=== PATIENT | female | born 2000 | race Two or more races ===

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

== ENCOUNTER 2024-03-06 19:50 | Inpatient (IN) | payer OTHER ==
[2024-03-06] MEDS: ELECTROLYTE-148 SOLN 1,000 ML IV SCH (20:40)
[2024-03-06] MEDS ORDERED: BUTORPHANOL TARTRATE 2 MG/ML VIAL IVPB PRN (21:00)
[2024-03-06 21:02] VITALS: BMI 31.1
[2024-03-06] MEDS ORDERED: PROMETHAZINE HCL 25 MG/1 ML VIAL ONE (21:21)
[2024-03-06] MEDS ORDERED: BUTORPHANOL TARTRATE 2 MG/ML VIAL ONE (21:21)
[2024-03-06] MEDS: BUTORPHANOL TARTRATE 2 MG/ML VIAL IVPB ONE (21:32)
[2024-03-06] MEDS: PROMETHAZINE HCL 25 MG/1 ML VIAL IVPB ONE (21:32)
[2024-03-06 21:50] LABS: BASO % 0.1 % (0-2.0); EOS % 0.2 % (0-4.5); HEMATOCRIT 40.1 % (32.4-45.2); HEMOGLOBIN 13.7 GM/dL (10.7-15.3); LYMPH % 14.2 % (8-40); MCH 31.8 pg (25.7-33.7); MCHC 34.1 g/dl (32.0-36.0); MEAN CELL VOLUME 93.2 fl (80-96); MEAN PLT VOLUME 8.7 fl (7.5-11.1); MONO % 7.3 % (3.8-10.2); NEUT % 78.2 % (42.8-82.8); PLATELET COUNT 209 10^3/uL (134-434); RDW 13.3 % (11.6-15.6); WHITE BLOOD COUNT 14.6 K/mm3 (4.0-10.0)
[2024-03-06 21:58] LABS: INR 0.92 (0.83-1.09); PROTHROMBIN TIME (PATIENT) 10.6 SEC (9.7-13.0)
[2024-03-06 22:01] LABS: ACTIVATED PTT 28.1 SECONDS (25.2-36.5); POTASSIUM 3.7 mmol/L (3.5-5.1)
[2024-03-06 22:02] LABS: CALCIUM 8.7 mg/dL (8.5-10.1)
[2024-03-06 22:03] LABS: BLOOD UREA NITROGEN 13.7 mg/dL (7-18)
[2024-03-06 22:06] LABS: CREATININE 0.6 mg/dL (0.55-1.3)
[2024-03-06] MEDS ORDERED: OXYTOCIN 20 UNITS in 0.9% NS 20 UNIT/1,000 ML INFUS.BAG IV ONE (23:34)
[2024-03-06] MEDS ORDERED: LIDOCAINE HCL 1% PRESERVATIVE FREE - 30ML VIAL ONE (23:34)
[2024-03-07] MEDS: OXYTOCIN 20 UNITS in 0.9% NS 20 UNIT/1,000 ML INFUS.BAG IV SCH (00:03)
[2024-03-07] MEDS ORDERED: BENZOCAINE 28 GM HEMORRHOIDAL OINTMENT TP PRN (00:14)
[2024-03-07] MEDS ORDERED: oxyCODONE HCL 5 MG TABLET PO PRN (00:14)
[2024-03-07] MEDS ORDERED: ACETAMINOPHEN 325 MG TABLET (FP) PO PRN (00:14)
[2024-03-07] MEDS ORDERED: BISACODYL 10 MG SUPP.RECT RC PRN (00:14)
[2024-03-07] MEDS ORDERED: WITCH HAZEL 50% (TUCKS) 40 PAD/JAR PAD TP PRN (00:14)
[2024-03-07] MEDS ORDERED: BENZOCAINE 20% 57 GM BOTTLE TP PRN (00:14)
[2024-03-07] MEDS ORDERED: IBUPROFEN 600 MG TABLET (FP) PO PRN (00:14)
[2024-03-07] MEDS ORDERED: METHYLERGONOVINE MALEATE 0.2 MG/1 ML AMP IM PRN (00:14)
[2024-03-07 00:31] LABS: CORD HCO3 26.5 mmHg (20-29); CORD PCO2 61.2 mmHg (30-78); CORD pH 7.255 (7.14-7.44)
[2024-03-07 00:39] LABS: CORD BASE EXCESS -3.1 mmol/L (0-2); CORD HCO3 22.5 mmHg (20-29); CORD PCO2 42.3 mmHg (30-78); CORD pH 7.344 (7.14-7.44)
[2024-03-07] MEDS: ELECTROLYTE-148 SOLN 1,000 ML IV SCH (03:28)
[2024-03-07] MEDS: PROMETHAZINE HCL 25 MG/1 ML VIAL IVPB ONE (03:28)
[2024-03-08 07:03] LABS: BASO % 0.5 % (0-2.0); EOS % 0.6 % (0-4.5); HEMATOCRIT 37.6 % (32.4-45.2); LYMPH % 22.1 % (8-40); MCH 32.7 pg (25.7-33.7); MCHC 34.7 g/dl (32.0-36.0); MEAN CELL VOLUME 94.2 fl (80-96); MEAN PLT VOLUME 8.7 fl (7.5-11.1); MONO % 7.8 % (3.8-10.2); PLATELET COUNT 188 10^3/uL (134-434); RBC 3.99 M/mm3 (3.60-5.2); RDW 13.4 % (11.6-15.6); WHITE BLOOD COUNT 13.2 K/mm3 (4.0-10.0)
[2024-03-08] MEDS ORDERED: diphenhydrAMINE HCL 25 MG CAPSULE (FP) PO ONE (19:24)
[2024-03-08] MEDS: diphenhydrAMINE HCL 50 MG CAPSULE PO PRN (19:26)
[2024-03-08] MEDS ORDERED: SENNOSIDES/DOCUSATE COMBO (SENNA PLUS) TABLET (UD) PO PRN (22:00)
[2024-03-09 12:24] VITALS: BP 119/82; PULSE 87; RESP 16; TEMP 98.1
== END 2024-03-09 12:55 | disposition home or self-care (01) | DRG 560 ==
LOC: JLDR 19:50 → J3W 03-07 02:47
PROVIDERS: ADMIT Obstetrics & Gynecology; ATTEND Obstetrics & Gynecology
PROC: 10E0XZZ Delivery of Products of Conception, External Approach (ICD-10-PCS; principal; 2024-03-07)
DX: O48.0 Post-term pregnancy (principal); Z3A.40 40 weeks gestation of pregnancy; O69.81X0 Labor and delivery complicated by cord around neck, without compression, not applicable or unspecified; Z37.0 Single live birth
CPT/HCPCS: 36415; 36600; 59409; 80048; 82803; 85025; 85610; 85730; 86780; 86850; 86900; 86901